=== PATIENT | female | born 1965 | race Two or more races ===

== ENCOUNTER 2023-10-05 09:45 | Outpatient (CLI) | payer OTHER ==
[~2023-10-05 09:45] MED LIST: KETO10TA2 PO; PEPCID AC20 MG PO
== END 2023-10-05 09:57 | disposition home or self-care (01) ==
LOC: RAD 09:45
PROVIDERS: ATTEND Orthopaedic Surgery
DX: S82.044A Nondisplaced comminuted fracture of right patella, initial encounter for closed fracture (principal)

== ENCOUNTER 2023-10-19 09:24 | Outpatient (CLI) | payer OTHER | END 2023-10-19 09:42 | disposition home or self-care (01) | LOC: MRI 09:24 | PROVIDERS: ATTEND Physical Medicine & Rehabilitation Pain Medicine | DX: S82.044D Nondisplaced comminuted fracture of right patella, subsequent encounter for closed fracture with routine healing (principal) | CPT/HCPCS: 73721 ==